=== PATIENT | female | born 1970 | race Caucasian/White ===

== ENCOUNTER 2016-11-22 11:20 | Observation (INO) | payer MEDICAID ==
[~2016-11-22] VITALS: Ht 162.6 cm; Wt 137.3 kg
[~2016-11-22 11:20] MED LIST: GLUCOPHAGE500 MG PO; GLUCOTROL ER2.5 MG PO; LEVAQUIN500 MG PO; PERCOCET 10/3251 TA1 PO; XANAX1 MG PO; ZOFRAN4 MG PO
--- NOTE | 2016-11-22 11:30 | NUR ---
RECEIVED TO ROOM [address] KAY'S OFFICE. A/O X3. WOUND TO RIGHT INNER THIGH WITHOUT ANY DRAINAGE AT THIS TIME. WARM AND REDDENED APPROXIMATLY 4CM X 4CM AREA. DR. JAQUEZ IS PLANNING A BEDSIDE I/D TODAY ON SAME. SIGNIFICANT OTHER AT BEDSIDE.
[2016-11-22] MEDS ORDERED: NORCO 7.5/325 T1 TA1 PO (12:21)
--- NOTE | 2016-11-22 13:00 | NUR ---
IV SITED TO LEFT WRIST AFTER 2 ATTEMPTS WITH 22 G.
[2016-11-22 13:10] LABS: BASOPHILS 0.2 % (0-2); EOSINOPHILS 2.1 % (0-7); HEMATOCRIT 35.5 % (36.0-48.0); HEMOGLOBIN 10.6 g/dL (12-16); IMMATURE GRANULOCYTES 0.6 % (0-5); LYMPHOCYTES 13.1 % (15-50); MCH 22.8 pg (26.0-34.0); MCHC 29.9 g/dL (31.0-37.0); MCV 76.5 fL (80.0-100.0); MEAN PLATELET VOLUME 9.5 fL (7.4-10.4); MONOCYTES 7.6 % (2-11); NEUTROPHILS 76.4 % (40-80); PLATELET COUNT 419 10x3/uL (130-400); RBC 4.64 10x6/uL (4.00-5.40); WBC 10.1 10x3/uL (4.8-10.8)
[2016-11-22 13:18] VITALS: Ht 162.6 cm; Wt 137.3 kg
[2016-11-22 13:18] LABS: ALBUMIN 2.4 g/dL (3.4-5.0); ALKALINE PHOSPHATASE 137 U/L (46-116); ALT (SGPT) 36 U/L (10-68); BILIRUBIN - TOTAL 0.44 mg/dL (0.2-1.3); CALC OSMOLALITY 275 mosm/kg (275-300); CALCIUM 8.4 mg/dL (8.5-10.1); CARBON DIOXIDE 24.8 mmol/L (21.0-32.0); CHLORIDE - SERUM 101 mmol/L (98-107); CREATININE - SERUM 0.5 mg/dL (0.6-1.3); POTASSIUM - SERUM 4.1 mmol/L (3.5-5.1); PROTEIN - SERUM 9.1 g/dL (6.4-8.2); SODIUM 135 mmol/L (136-145); UREA NITROGEN 11 mg/dL (7-18); eGFR NON AFRICAN AMERICAN > 90 mL/min (90-120)
[2016-11-22 13:21] LABS: GLUCOSE 231 mg/dL (74-106)
--- NOTE | 2016-11-22 17:00 | NUR ---
FSBS 144. NO COVERAGE REQUIRED. STILL NPO FOR PORCEDURE.
--- NOTE | 2016-11-22 19:00 | NUR ---
DR. JAQUEZ HERE COMPLETED I/D AT BEDSIDE. PATIENT TOLERATED WITHOUT C/O PAIN. WILL D/C HOME SOON.
--- NOTE | 2016-11-22 20:24 | NUR ---
PT WAS DISCHARGED AT SHIFT CHANGE. AMANDA THE COMMAND POST CRAFTSMAN DID HER PAPER WORK ANDF AFTER REPORT WAS TAKEN I REMOVED HER IV AND DRESSED IT. HER DRESSING TO HER THIGH WAS CLEAN AND DRY. EXTRA DRESSINGS WERE GIVEN FOR BLEEDING DURING THE NIGHT. AFTER ALL PAPER WORK WAS GONE OVER AND SIGNED PT WAS TAKEN TO THE CAR VIA W/C.
== END 2016-11-22 20:15 | disposition home or self-care (01) ==
LOC: D.MS 11:20 → OBSVTIME 11:20 → D.MS 20:15
PROVIDERS: ADMIT Family Medicine
DX: L02.415 Cutaneous abscess of right lower limb (principal); E11.9 Type 2 diabetes mellitus without complications

== ENCOUNTER → 2017-01-02 19:17 | Outpatient (CLI) | payer MEDICAID ==
[2016-11-22 13:18] VITALS: BMI 51.9
[~2017-01-02 19:17] MED LIST changes: +NORCO 7.5/325 T1 TA1 PO
== END | disposition home or self-care (01) ==
LOC: D.LABREF 19:17
DX: L02.415 Cutaneous abscess of right lower limb (principal)

== ENCOUNTER 2017-07-29 17:29 | Emergency (ER) | payer MEDICAID ==
[2016-11-22 13:18] VITALS: BMI 51.9
[2017-07-29 19:27] LABS: BASOPHILS 0.3 % (0-2); EOSINOPHILS 1.8 % (0-7); HEMATOCRIT 32.3 % (36.0-48.0); HEMOGLOBIN 9.8 g/dL (12-16); IMMATURE GRANULOCYTES 0.4 % (0-5); LYMPHOCYTES 15.1 % (15-50); MCH 21.8 pg (26.0-34.0); MCHC 30.3 g/dL (31.0-37.0); MCV 71.8 fL (80.0-100.0); MEAN PLATELET VOLUME 9.4 fL (7.4-10.4); NEUTROPHILS 75.4 % (40-80); PLATELET COUNT 415 10x3/uL (130-400); RDW 18.6 % (11.5-14.5); WBC 11.4 10x3/uL (4.8-10.8)
[2017-07-29 20:11] LABS: APTT 25.9 SECONDS (22.8-39.4); INR 1.12 (0.85-1.17)
[2017-07-29 20:12] LABS: D-DIMER-QUANTITATIVE 0.38 ug/mLFEU (0.20-0.54)
[2017-07-29 20:18] LABS: ALBUMIN 2.5 g/dL (3.4-5.0); ALKALINE PHOSPHATASE 137 U/L (46-116); ALT (SGPT) 23 U/L (10-68); BILIRUBIN - TOTAL 0.32 mg/dL (0.2-1.3); CALC OSMOLALITY 279 mosm/kg (275-300); CALCIUM 8.3 mg/dL (8.5-10.1); CARBON DIOXIDE 29.1 mmol/L (21.0-32.0); CHLORIDE - SERUM 100 mmol/L (98-107); CREATININE - SERUM 0.7 mg/dL (0.6-1.3); GLUCOSE 210 mg/dL (74-106); SODIUM 137 mmol/L (136-145); UREA NITROGEN 12 mg/dL (7-18); eGFR NON AFRICAN AMERICAN > 90 mL/min (90-120)
[2017-07-29 20:33] LABS: AMYLASE - SERUM 41 U/L (25-115); CREATINE KINASE 40 UL (21-215); LIPASE 123 U/L (73-393)
[2017-07-29 20:37] LABS: TROPONIN-I < 0.017 ng/mL (0.000-0.060)
[2017-07-29 21:04] LABS: CKMB 0.3 U/L (0.0-3.6)
== END 2017-07-29 21:50 | disposition home or self-care (01) ==
LOC: D.ER 17:29
PROVIDERS: Family Medicine
DX: R51 Headache (principal); E28.2 Polycystic ovarian syndrome; E11.9 Type 2 diabetes mellitus without complications; Z79.4 Long term (current) use of insulin; R00.0 Tachycardia, unspecified

== ENCOUNTER → 2017-09-18 09:57 | Outpatient (CLI) | payer BC ==
[2016-11-22 13:18] VITALS: BMI 51.9
== END | disposition home or self-care (01) ==
LOC: D.MRI 09-11 15:24
DX: R51 Headache (principal)

== ENCOUNTER 2018-08-13 06:00 | Day surgery (SDC) | payer BC ==
[2018-08-08 12:29] LABS: BASOPHILS 0.3 % (0-2); EOSINOPHILS 1.6 % (0-7); HEMATOCRIT 36.8 % (36.0-48.0); HEMOGLOBIN 11.5 g/dL (12-16); IMMATURE GRANULOCYTES 0.4 % (0-5); LYMPHOCYTES 18.5 % (15-50); MCH 24.5 pg (26.0-34.0); MCHC 31.3 g/dL (31.0-37.0); MCV 78.3 fL (80.0-100.0); MEAN PLATELET VOLUME 9.5 fL (7.4-10.4); MONOCYTES 5.5 % (2-11); NEUTROPHILS 73.7 % (40-80); PLATELET COUNT 341 10x3/uL (130-400); RDW 16.1 % (11.5-14.5); WBC 9.9 10x3/uL (4.8-10.8)
[2018-08-08 12:38] LABS: CALC OSMOLALITY 272 mosm/kg (275-300); CALCIUM 8.1 mg/dL (8.5-10.1); CARBON DIOXIDE 28.7 mmol/L (21.0-32.0); CHLORIDE - SERUM 98 mmol/L (98-107); CREATININE - SERUM 0.6 mg/dL (0.6-1.3); GLUCOSE 218 mg/dL (74-106); POTASSIUM - SERUM 3.7 mmol/L (3.5-5.1); SODIUM 132 mmol/L (136-145); UREA NITROGEN 15 mg/dL (7-18); eGFR NON AFRICAN AMERICAN > 90 mL/min (90-120)
[~2018-08-13] VITALS: Ht 162.6 cm; Wt 140.6 kg
[~2018-08-13 06:00] MED LIST changes: +ALBUTEROL AER HFA; +VICTOZA0.6 MG/0.1 SQ
[2018-08-13 06:28] VITALS: BP 134/65; Ht 162.6 cm; Wt 140.6 kg
[2018-08-13 07:46] LABS: HCG URINE NEGATIVE (NEGATIVE)
[2018-08-13 08:36] LABS: APPEARANCE CLOUDY (CLEAR); BACTERIA MODERATE /hpf (NONE SEEN); BILIRUBIN NEGATIVE (NEGATIVE); COLOR YELLOW (YELLOW); GLUCOSE 500 mg/dL (NEGATIVE); KETONE SMALL mg/dL (NEGATIVE); NITRITE NEGATIVE (NEGATIVE); PROTEIN NEGATIVE (NEGATIVE); RED CELLS - URINE OCC /hpf (0-5); SPECIFIC GRAVITY 1.015 (1.005-1.020); UROBILINOGEN NORMAL (NORMAL)
[2018-08-13 08:37] LABS: YEAST <1+ /hpf (NONE SEEN)
--- NOTE | 2018-08-13 09:00 | NUR ---
REC'D FROM SURGERY. FAMILY AT BEDSIDE. RELATES IS THIRSTY AND WANTS TO GO TO THE BATHROOM. RELATES IS HAVING PAIN IN THE VAGINAL AREA 02/12. FL TRAY AND GRAPE JUICE BROUGHT TO PATIENT.
--- NOTE | 2018-08-13 09:30 | NUR ---
TOLERATED DIET. AWAKE AND SMILING. RELATES IS READY TO GO HOME. C/O CRAMPING IN YENY AREA.
--- NOTE | 2018-08-13 10:02 | NUR ---
TYLENOL #3 PO ADMINISTERED FOR C/O PAIN 02/12 PER ORDERS.
--- NOTE | 2018-08-13 10:05 | NUR ---
FSBS RECHECKED 484. ORDRE FOR URGENT LAB DRAW TO CONFIRM RESULT.
--- NOTE | 2018-08-13 10:10 | NUR ---
SPOKE WITH DR WHITE AND ORDER RECEIVED FOR 10 UNITS OD REGULAR INSULIN.
--- NOTE | 2018-08-13 10:37 | NUR ---
LAB HAS NOT DRAWN PATIENTS GLUCOSE. LAB CALLED AND SPOKE WITH REGARDING URGENT ORDER FOR GLUCOSE DRAW.
--- NOTE | 2018-08-13 10:55 | NUR ---
LAB STILL HAS NOT DRAWN PT'S GLUCOSE. FSBS PERFORMED WITH RESULT OF 259.
--- NOTE | 2018-08-13 11:05 | NUR ---
SPOKE WITH DR WHITE AND RELATED BS HAS COME DOWN TO 259 WITHOUT THE ADMINISTRATION OF INSULIN. RELATES THAT IS FINE AND SHE CAN GO HOME.
--- NOTE | 2018-08-13 11:20 | NUR ---
IV DC'D WITH CATHETER INTACT. WRITTEN AND VERBAL DC INST, GIVEN TO PT ALONG WITH RX. VERBALIZED UNDERSTANDING.
--- NOTE | 2018-08-13 11:30 | NUR ---
DC'D HOME WITH FAMILY VIA PRIVATE VEHICLE. TAKEN TO VEHICLE VIA WC. STABLE AT TIME OF DC.
== END 2018-08-13 11:30 | disposition home or self-care (01) ==
LOC: D.OPS 06:00
PROVIDERS: ATTEND Obstetrics & Gynecology
DX: N84.0 Polyp of corpus uteri (principal); N93.8 Other specified abnormal uterine and vaginal bleeding; N76.0 Acute vaginitis; Z01.812 Encounter for preprocedural laboratory examination

== ENCOUNTER → 2018-12-05 06:56 | Outpatient (CLI) | payer BC ==
[2018-08-13 06:28] VITALS: BMI 53.3
== END | disposition home or self-care (01) ==
LOC: D.NM 06:56
PROVIDERS: ATTEND Nurse Practitioner Family
DX: K21.9 Gastro-esophageal reflux disease without esophagitis (principal)

== ENCOUNTER 2019-02-26 06:50 | Emergency (ER) | payer BC ==
[~2019-02-26] VITALS: Ht 162.6 cm; Wt 134.1 kg
[2019-02-26 06:55] VITALS: Ht 162.6 cm; Wt 134.1 kg
[2019-02-26] MEDS ORDERED: GLUCOTROL 5 MG T5 MG PO (06:58)
[2019-02-26 09:17] VITALS: BP 148/88
== END 2019-02-26 09:18 | disposition home or self-care (01) ==
LOC: D.ER 06:50
DX: M54.32 Sciatica, left side (principal); E11.9 Type 2 diabetes mellitus without complications

== ENCOUNTER 2019-03-26 13:16 | Inpatient (IN) | payer BC ==
[~2019-03-26] VITALS: Ht 162.6 cm; Wt 168.2 kg
[~2019-03-26 13:16] MED LIST changes: +GLUCOTROL 5 MG T5 MG PO
--- NOTE | 2019-03-26 14:40 | NUR ---
RECEIVED TO ROOM 2230 VIA FROM OFFICE. A/O X3. AT BEDSIDE. SKIN HAS SEVERAL SCARED AREAS UNDER ARMS AND ON BUTTOCKS. SHE STATES THIS IS FROM HYDRONITIS. C/O PAIN TO LEFT SIDE OF ABDOMEN AND CHEST. WILL MONITOR.
--- NOTE | 2019-03-26 15:15 | NUR ---
OFF UNIT VIA FOR CT SCAN.
[2019-03-26 15:18] VITALS: BP 132/36; BMI 497.2
[2019-03-26 15:25] LABS: HEMATOCRIT 33.1 % (36.0-48.0); HEMOGLOBIN 9.7 g/dL (12-16); MCH 21.1 pg (26.0-34.0); MCHC 29.3 g/dL (31.0-37.0); PLATELET COUNT 457 10x3/uL (130-400); RDW 18.1 % (11.5-14.5); WBC 24.5 10x3/uL (4.8-10.8)
[2019-03-26 15:25] LABS: CALC OSMOLALITY 271 mosm/kg (275-300); CALCIUM 8.3 mg/dL (8.5-10.1); CARBON DIOXIDE 23.7 mmol/L (21.0-32.0); CHLORIDE - SERUM 98 mmol/L (98-107); CREATININE - SERUM 0.5 mg/dL (0.6-1.3); GLUCOSE 243 mg/dL (74-106); POTASSIUM - SERUM 3.6 mmol/L (3.5-5.1); SODIUM 133 mmol/L (136-145); UREA NITROGEN 7 mg/dL (7-18); eGFR NON AFRICAN AMERICAN > 90 mL/min (90-120)
[2019-03-26 15:31] LABS: ALBUMIN 2.7 g/dL (3.4-5.0); ALKALINE PHOSPHATASE 143 U/L (46-116); ALT (SGPT) 20 U/L (10-68); AMYLASE - SERUM 38 U/L (25-115); LIPASE 132 U/L (73-393); PROTEIN - SERUM 8.8 g/dL (6.4-8.2)
[2019-03-26] MEDS ORDERED: OMEPRAZOLE20 M1 PO (15:38)
[2019-03-26 15:39] VITALS: BP 133/64
[2019-03-26 15:47] LABS: LYMPHOCYTES 6 % (15-50); MONOCYTES 4 % (2-11); NEUTROPHILS 89 % (40-80); PLATELET ESTIMATE NORMAL
--- NOTE | 2019-03-26 17:56 | NUR ---
REQUESTED AND GIVEN ONE HYDROCODONE PO FOR C/O ABDOMINAL PAIN LEVEL 10. WILL MONITOR.
[2019-03-26 18:51] LABS: APPEARANCE CLOUDY (CLEAR); BILIRUBIN NEGATIVE (NEGATIVE); COLOR YELLOW (YELLOW); GLUCOSE 100 mg/dL (NEGATIVE); KETONE MODERATE mg/dL (NEGATIVE); NITRITE NEGATIVE (NEGATIVE); PROTEIN TRACE mg/dL (NEGATIVE); UROBILINOGEN NORMAL (NORMAL)
[2019-03-26 18:56] LABS: EPITHELIAL CELLS 0-5 /hpf (0-5); RED CELLS - URINE 25-50 /hpf (0-5)
[2019-03-26 18:57] LABS: BACTERIA FEW /hpf (NEGATIVE)
--- NOTE | 2019-03-26 19:15 | NUR ---
A&O X 4. REPORTS PAIN IS IT A TOLERABLE LEVEL. REQUESTS TO SPEAK WITH INSPECTOR CIRCUITRY NEGATIVE OR DR WHEN POSSIBLE. AT BEDSIDE. NO REQUESTS AT THIS TIME, WILL CONTINUE TO MONITOR
[2019-03-26 21:23] VITALS: BP 114/62
[2019-03-27 01:14] VITALS: BP 122/60
--- NOTE | 2019-03-27 04:49 | NUR ---
I have reviewed this patient and I concur with the Shift Assessment completed by the Licensed Practical Nurse today this shift.
[2019-03-27 05:17] LABS: BASOPHILS 0.1 % (0-2); EOSINOPHILS 0.1 % (0-7); HEMATOCRIT 30.2 % (36.0-48.0); HEMOGLOBIN 8.6 g/dL (12-16); IMMATURE GRANULOCYTES 0.5 % (0-5); LYMPHOCYTES 5.6 % (15-50); MCH 20.8 pg (26.0-34.0); MCHC 28.5 g/dL (31.0-37.0); MCV 72.9 fL (80.0-100.0); MEAN PLATELET VOLUME 9.2 fL (7.4-10.4); MONOCYTES 10.3 % (2-11); NEUTROPHILS 83.4 % (40-80); PLATELET COUNT 442 10x3/uL (130-400); RBC 4.14 10x6/uL (4.00-5.40); RDW 18.3 % (11.5-14.5); WBC 22.5 10x3/uL (4.8-10.8)
[2019-03-27 05:27] LABS: % SATURATION 3 % (15-55); IRON 11 ug/dl (35-150); TOTAL IRON BIND CAPACITY 284 ug/dl (260-445); UNSAT IRON BIND CAPACITY 273 ug/dl (150-375)
[2019-03-27 06:00] LABS: CALC OSMOLALITY 271 mosm/kg (275-300); CALCIUM 7.6 mg/dL (8.5-10.1); CHLORIDE - SERUM 102 mmol/L (98-107); CREATININE - SERUM 0.5 mg/dL (0.6-1.3); FERRITIN 80 ng/mL (3-244); GLUCOSE 209 mg/dL (74-106); MAGNESIUM - SERUM 1.4 mg/dL (1.8-2.4); PHOSPHOROUS 2.1 mg/dL (2.5-4.9); POTASSIUM - SERUM 3.1 mmol/L (3.5-5.1); SODIUM 134 mmol/L (136-145); UREA NITROGEN 8 mg/dL (7-18); eGFR NON AFRICAN AMERICAN > 90 mL/min (90-120)
[2019-03-27 06:01] VITALS: BP 134/66
[2019-03-27 07:41] VITALS: BP 125/64
--- NOTE | 2019-03-27 08:33 | NUR ---
AWAKE AND ALERT. ORIENTED X3. NO C/O AT THIS TIME. WILL BE NPO AFTER BREAKFAST FOR TEST. LUNGS ARE WHEEZEY IN LEFT LOWER LOBES AND DIMINISHED THROUGHOUT. OCCASSIONAL DRY COUGH NOTED. IV TO RIGHT HAND IS PATENT WITHOUT REDNESS AT INSERTION SITE. DENIES NEEDS. BREAKFAST SERVED IN ROOM.
--- NOTE | 2019-03-27 09:00 | NUR ---
ATE ALL OF BREAKFAST. NOP AT THIS TIME. REFUSED TO WEAR TELTMETRY. UP TO SHOWER WITH SET UP ASSISTANCE. THERE IS AN OPEN SORE UNDER LEFT ARM THAT HAS SOME YELLOWISH OOZING. DRY DRESSING PLACED. WILL MONITOR.
--- NOTE | 2019-03-27 13:42 | NUR ---
THINKING HER BLOOD GLUCOSE IS LOW. CHECK SHOWS 234. WILL CONTINUE TO MONITOR.
[2019-03-27 14:18] VITALS: Ht 162.6 cm; Wt 168.2 kg
[2019-03-27 15:24] VITALS: BP 137/58
--- NOTE | 2019-03-27 16:31 | MORECARE ---
CASE MANAGEMENT DISCHARGE SUMMARY PATIENT: THA ODOM UNIT: [id number] ADM DATE: 03/26/19 AGE: 48 : 66 SEX: F ROOM/BED: D.2230 AUTHOR: LOR,DOC PHYSICIAN: REFERRING PHYSICIAN: MAGO KAY MD DATE OF SERVICE: 03/27/19 Discharge Plan Patient Name: THA ODOM Facility: [facility]:[place] : 1970 Planned Disposition: Home Anticipated Discharge Date: 03/27/19 Discharge Date: Expected LOS: 1 Initial Reviewer: [email or web address] Initial Review Date: 03/27/2019 Generated: 03/27/19 5:31 pm Comments DCP- Discharge Planning Updated by [id number]: Celia Salazar on 03/27/19 3:[address] Patient Name: THA ODOM Admission Status: Urgent Accout number: [id number] Admission Date: 03-26-2019 : 1970 Admission Diagnosis: Attending: MAGO IVEY Current LOS: 1 Anticipated DC Date: 03-27-2019 Planned Disposition: Home Primary Insurance: [employer] [facility] Discharge Planning Comments: CM met with patient to complete initial dc planning assessment. CM educated patient on the CM role and verbal consent given by patient to complete assessment. Patient lives at home with her . At discharge patient plans to return and feels this is a safe discharge. CM discussed availability of home health, rehab services, and medical equipment. Patient denied known discharge needs at this time. CM will continue to follow and will assist as needed with dc plans/needs. Computer Aided Design Operator: Celia Salazar DCPIA - Discharge Planning Initial Assessment Updated by [email or web address]: Celia Salazar on 03/27/19 4:30 pm * Is the patient Alert and Oriented? Yes * How many steps to enter\exit or inside your home? 0/0 * PCP Dr. Mago Ivey * Pharmacy [facility] on [address] * Preadmission Environment Home with Family * ADLs Independent * Equipment Glucometer * List name and contact numbers for known caregivers / representatives who currently or will assist patient after discharge: Mitch Odom - [facility] - [phone] * Verbal permission to speak to the caregivers and representatives has been obtained from the patient. Yes * Community resources currently utilized None * Additional services required to return to the preadmission environment? No * Can the patient safely return to the preadmission environment? Yes * Has this patient been hospitalized within the prior 30 days at any hospital? No Patient Name: THA ODOM Page [id number] at 1631 All edits/amendments must be made on the electronic document DICTATION DATE: 03/27/19 1631 VENDING MACHINE REFILLER: LESLIE 03/27/19 1631 RPT#: [id number] DC DATE: STATUS: ADM IN [facility] [address] [place] [address] END OF REPORT
--- NOTE | 2019-03-27 18:49 | NUR ---
ATE MOST OF SUPPER. AT BEDSIDE. DENIES NEEDS. NO CHANGES NOTED.
[2019-03-27 21:16] VITALS: BP 133/73
[2019-03-28 00:57] VITALS: BP 124/50
[2019-03-28 05:00] VITALS: BP 116/63
[2019-03-28 06:34] LABS: CALC OSMOLALITY 275 mosm/kg (275-300); CALCIUM 7.9 mg/dL (8.5-10.1); CARBON DIOXIDE 24.6 mmol/L (21.0-32.0); CHLORIDE - SERUM 101 mmol/L (98-107); CREATININE - SERUM 0.5 mg/dL (0.6-1.3); GLUCOSE 214 mg/dL (74-106); MAGNESIUM - SERUM 1.5 mg/dL (1.8-2.4); PHOSPHOROUS 1.9 mg/dL (2.5-4.9); POTASSIUM - SERUM 3.1 mmol/L (3.5-5.1); SODIUM 136 mmol/L (136-145); UREA NITROGEN 6 mg/dL (7-18); eGFR NON AFRICAN AMERICAN > 90 mL/min (90-120)
[2019-03-28 06:36] LABS: HEMATOCRIT 27.9 % (36.0-48.0); HEMOGLOBIN 8.1 g/dL (12-16); MCH 20.9 pg (26.0-34.0); MCV 72.1 fL (80.0-100.0); MEAN PLATELET VOLUME 9.5 fL (7.4-10.4); PLATELET COUNT 388 10x3/uL (130-400); RBC 3.87 10x6/uL (4.00-5.40); RDW 18.5 % (11.5-14.5); WBC 22.2 10x3/uL (4.8-10.8)
--- NOTE | 2019-03-28 08:00 | NUR ---
ALERT AND OREINTED X4. REFUSES SCD'S. UP ADLIB. ABDOMEN OBESE WITH PANNUS WITH SKIN INTACT AND BOWEL SOUNDS NOTED X4.. HRRR WITH BREATH SOUNDS DIMINISHED TO BLQ POSTERIOR WITHOUT DYSPNEA. IVF INFUSING TO RIGHT HAND AND INTACT. INSTRUCTED ON NEED FOR SPUTUM CULTURE AND USE OF SPECIMEN CUP. ENCOURAGED TO USE CALL LIGHT FOR ASSSIT. DENIES ANY PAIN OR DISCOMFORT.
[2019-03-28 08:17] VITALS: BP 110/59
[2019-03-28 08:24] LABS: HYPOCHROMASIA 3+; LYMPHOCYTES 4 % (15-50); MONOCYTES 4 % (2-11); NEUTROPHILS 92 % (40-80); PLATELET ESTIMATE NORMAL
[2019-03-28 12:00] VITALS: BP 107/70
[2019-03-28 17:45] VITALS: BP 121/69
--- NOTE | 2019-03-28 20:00 | NUR ---
ALERT AND ORIENTIATED, SITTING UP ON SIDE OF BED, REPORTS PAIN BETTER NOW, BUT AFRAID TEMP WILL COME UP IF NOT TAKING TYLENOL, INSTRUCTED THAT [facility] HAS TYLENOL IN IT, AND WE WILL CONTINUE TO MONITOR TEMP AND WILL GIVE TYLENOL IF NEEDED, SEE SHIFT ASSESSMENT, CALL LIGHT IN REACH
[2019-03-28 20:33] VITALS: BP 129/66
[2019-03-29 01:00] VITALS: BP 126/72
[2019-03-29 05:21] VITALS: BP 128/77
[2019-03-29 06:20] LABS: BASOPHILS 0.2 % (0-2); EOSINOPHILS 0.5 % (0-7); HEMATOCRIT 26.6 % (36.0-48.0); HEMOGLOBIN 7.7 g/dL (12-16); IMMATURE GRANULOCYTES 0.7 % (0-5); LYMPHOCYTES 8.2 % (15-50); MCH 20.8 pg (26.0-34.0); MCHC 28.9 g/dL (31.0-37.0); MCV 71.9 fL (80.0-100.0); MEAN PLATELET VOLUME 9.6 fL (7.4-10.4); MONOCYTES 8.1 % (2-11); NEUTROPHILS 82.3 % (40-80); PLATELET COUNT 408 10x3/uL (130-400); RDW 18.6 % (11.5-14.5)
[2019-03-29 06:28] LABS: WBC 14.7 10x3/uL (4.8-10.8)
[2019-03-29 06:48] LABS: CALC OSMOLALITY 273 mosm/kg (275-300); CALCIUM 7.6 mg/dL (8.5-10.1); CARBON DIOXIDE 23.8 mmol/L (21.0-32.0); CHLORIDE - SERUM 101 mmol/L (98-107); CREATININE - SERUM 0.4 mg/dL (0.6-1.3); GLUCOSE 207 mg/dL (74-106); MAGNESIUM - SERUM 1.5 mg/dL (1.8-2.4); PHOSPHOROUS 2.1 mg/dL (2.5-4.9); SODIUM 135 mmol/L (136-145); UREA NITROGEN 7 mg/dL (7-18); eGFR NON AFRICAN AMERICAN > 90 mL/min (90-120)
[2019-03-29 06:49] LABS: POTASSIUM - SERUM 2.9 mmol/L (3.5-5.1)
--- NOTE | 2019-03-29 08:00 | NUR ---
ALERT AND ORIENTED X4 WITH FAMILY PRESENT. NO DYSPNEA NOTED. ABNORMAL LABS TREATED PER PROTOCOL. IVF INFUSING AT PRESCRIBED RATE TO RT. HAND. DIMINISHED BREATH SOUNDS NOTED TO BLQ POSTERIOR. TELEMETRY INTACT. UP ADLIB AND DENIES ANY PAIN OR DISCOMFORT AT THIS TIME. ENCOURAGED TO USE CALL LIGHT FOR ASSIST. ABDOMEN OBESE WITH BS NOTED X4.
[2019-03-29 08:20] LABS: INR 1.11 (0.85-1.17); PROTIME 13.8 SECONDS (11.6-15.0)
[2019-03-29 08:28] VITALS: BP 144/75
--- NOTE | 2019-03-29 11:40 | NUR ---
IV 20 GAUGE STARTED TO RIGHT FOREARM WITH 1ST UNIT PRBC'S STARTED WITH NO S/S OF REACTION NOTED AT THIS TIME.
--- NOTE | 2019-03-29 14:36 | NUR ---
PT AWARE OF NEED FOR STOOL SPECIMEN
--- NOTE | 2019-03-29 20:00 | NUR ---
ALERT SITTING UP IN BED, REPORTS FEELING BETTER TODAY LESS ANXIOUS, DENIES PAIN OR NEEDS AT THIS TIME SEE SHIFT ASSESSMENT, CALL LIGHT IN REACH
[2019-03-29 20:51] VITALS: BP 134/72
[2019-03-30 01:05] VITALS: BP 133/77
[2019-03-30 05:06] VITALS: BP 141/78
[2019-03-30 06:32] LABS: BASOPHILS 0.3 % (0-2); EOSINOPHILS 1.5 % (0-7); HEMATOCRIT 31.1 % (36.0-48.0); HEMOGLOBIN 9.2 g/dL (12-16); IMMATURE GRANULOCYTES 1.3 % (0-5); LYMPHOCYTES 9.8 % (15-50); MCH 22.2 pg (26.0-34.0); MCHC 29.6 g/dL (31.0-37.0); MEAN PLATELET VOLUME 9.5 fL (7.4-10.4); MONOCYTES 10.6 % (2-11); NEUTROPHILS 76.5 % (40-80); PLATELET COUNT 390 10x3/uL (130-400); RBC 4.15 10x6/uL (4.00-5.40); RDW 19.5 % (11.5-14.5)
[2019-03-30 07:02] LABS: CALC OSMOLALITY 279 mosm/kg (275-300); CALCIUM 7.9 mg/dL (8.5-10.1); CARBON DIOXIDE 25.7 mmol/L (21.0-32.0); CHLORIDE - SERUM 103 mmol/L (98-107); CREATININE - SERUM 0.5 mg/dL (0.6-1.3); GLUCOSE 222 mg/dL (74-106); LDH 129 U/L (81-234); PHOSPHOROUS 2.6 mg/dL (2.5-4.9); POTASSIUM - SERUM 3.3 mmol/L (3.5-5.1); PROTEIN - SERUM 7.6 g/dL (6.4-8.2); SODIUM 137 mmol/L (136-145); eGFR NON AFRICAN AMERICAN > 90 mL/min (90-120)
[2019-03-30 07:03] LABS: INR 1.16 (0.85-1.17); PROTIME 14.3 SECONDS (11.6-15.0)
[2019-03-30 07:08] LABS: MAGNESIUM - SERUM 1.9 mg/dL (1.8-2.4); UREA NITROGEN 9 mg/dL (7-18)
[2019-03-30 07:13] LABS: MCV 74.9 fL (80.0-100.0); WBC 9.9 10x3/uL (4.8-10.8)
--- NOTE | 2019-03-30 07:32 | NUR ---
AWAKE AND ALERT. ORIENTED X3. NO C/O AT THIS TIME. LUNGS ARE DIMINISHED THROUGHOUT, OCCASSIONAL DRY COUGH NOTED. SKIN IS INTACT WTIHOUT REDNESS EXCEPT AREAS UNDER ARM PITS WHICH ARE CLEAN AND DRY THIS AM. IV TO RIGHT HAND IS PATENT WITHOUT REDNESS AT INSERTION SITE. AT BEDSIDE. DENIES NEEDS. NPO FOR PROCEDURE THIS AM.
--- NOTE | 2019-03-30 08:30 | NUR ---
OFF UNIT VIA FOR PROCEDURE.
--- NOTE | 2019-03-30 09:56 | NUR ---
RETURNED FROM IR. NO PROCEDURE COMPLETED. A/O X3. BREAKFAST SERVED IN ROOM.
--- NOTE | 2019-03-30 12:00 | NUR ---
FSBS 214. GIVEN 8 UNITS HUMALOG SUBQ PER SS. LUNCH ORDERED PER STAFF.
[2019-03-30 12:52] VITALS: BP 142/70
--- NOTE | 2019-03-30 13:50 | NUR ---
Nutrition follow-up: Diet: Consistent CHO PO intake ~80% average of last 5 meals Labs reviewed: Glucose running high +BM Wt: 370# PO intake is good at this time. RDN following.
--- NOTE | 2019-03-30 14:17 | NUR ---
ATE ALL OF LUNCH VISITOR AT BEDSIDE. DENIES NEEDS.
--- NOTE | 2019-03-30 18:42 | NUR ---
ATE ALL OF SUPPER. DENIES NEEDS. NO CHANGES NOTED. AT BEDSIDE.
--- NOTE | 2019-03-30 20:00 | NUR ---
ALERT SITTING UP IN BED DENIES PAIN OR NEEDS AT THIS TIME, SEE SHIFT ASSESSMENT CALL LIGHT IN REACH
[2019-03-30 20:41] VITALS: BP 112/67
[2019-03-31 01:39] VITALS: BP 126/64
[2019-03-31 04:49] VITALS: BP 144/79
[2019-03-31 06:55] LABS: BASOPHILS 0.3 % (0-2); EOSINOPHILS 2.7 % (0-7); HEMATOCRIT 31.9 % (36.0-48.0); HEMOGLOBIN 9.4 g/dL (12-16); IMMATURE GRANULOCYTES 2.6 % (0-5); LYMPHOCYTES 13.6 % (15-50); MCH 22.1 pg (26.0-34.0); MCHC 29.5 g/dL (31.0-37.0); MCV 75.1 fL (80.0-100.0); MEAN PLATELET VOLUME 9.3 fL (7.4-10.4); NEUTROPHILS 71.8 % (40-80); PLATELET COUNT 396 10x3/uL (130-400); RBC 4.25 10x6/uL (4.00-5.40); RDW 19.7 % (11.5-14.5); WBC 9.2 10x3/uL (4.8-10.8)
[2019-03-31 07:06] LABS: CALC OSMOLALITY 280 mosm/kg (275-300); CALCIUM 7.8 mg/dL (8.5-10.1); CARBON DIOXIDE 26.3 mmol/L (21.0-32.0); CHLORIDE - SERUM 104 mmol/L (98-107); CREATININE - SERUM 0.5 mg/dL (0.6-1.3); GLUCOSE 179 mg/dL (74-106); MAGNESIUM - SERUM 1.7 mg/dL (1.8-2.4); SODIUM 139 mmol/L (136-145); UREA NITROGEN 9 mg/dL (7-18); eGFR NON AFRICAN AMERICAN > 90 mL/min (90-120)
[2019-03-31 07:08] LABS: PHOSPHOROUS 3.5 mg/dL (2.5-4.9); POTASSIUM - SERUM 3.8 mmol/L (3.5-5.1)
--- NOTE | 2019-03-31 07:31 | NUR ---
AWAKE AND ALERT. ORIENTED X3. NO C/O AT THIS TIME. LUNGS ARE CLEAR BUT DIMINISHED THROUGHOUT, OCCASSIONAL DRY COUGH NOTED. SKIN IS INTACT WITHOUT REDNESS EXCEPT AREAS UNDER ARMS WHICH ARE IMPROVED FROM YESTERDAY. IV TO RIGHT HAND IS PATENT WITHOUT REDNESS AT INSERTION SITE. GETTING UP TO SHOWER PER SELF. AT BEDSIDE.
--- NOTE | 2019-03-31 08:30 | NUR ---
UP TO SHOWER WITH SET UP ASSIST.
--- NOTE | 2019-03-31 08:49 | EC ---
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 Ao 160 cm/sec RVOT 98 cm/sec RA cm/sec PA 129 cm/sec AV Gradient Peak 10.22mmHg AV Mean 6.06 mmHg AV Area 2.2 cm MV Gradient Peak 8.42 mmHg MV Mean 3.30 mmHg MV Area cm COMMENTS: Manager Bank: 2 JOSH MARINO Rocket Engine Tester: 3 Dr. Danielle TAPE# PACS Pericardial Effusion N DATE OF SERVICE: Adequate 2D, color flow, spectral Doppler, and M-mode. LVH is present. LV internal dimension is normal. Wall motion is normal. EF is greater than or equal to 55%. Aortic valve sclerosis without stenosis by Doppler interrogation. Left atrium is normal at 3.6. Mitral valve shows no prolapse. Mild MR. Right-sided chambers appear grossly normal. Mild TR. RV systolic pressure estimated greater than or equal to 32 mmHg via the continuity equation. TRANSINT:[id number] Voice Confirmation ID: [id number] DOCUMENT ID: [id number] ECHOCARDIOGRAM REPORT [id number] THA HARRIS GREGORY A MD at 0849 CC: [id number] DICTATION DATE: 03/29/19 1016 HAND RUG CLEANER: 03/29/19 1127 ADM IN [facility] [address] [place] [address]
[2019-03-31 08:53] VITALS: BP 133/77
--- NOTE | 2019-03-31 16:17 | NUR ---
REQUESTED AND GIVEN 650MG TYLENOL PO FOR C/O BACK AND SCIAT[place] PAIN LEVEL 7. WILL MONITOR.
[2019-03-31 17:23] VITALS: BP 128/67
--- NOTE | 2019-03-31 18:30 | NUR ---
ATE ALL OF SUPPER TRAY. IN ROOM. DR. STEWART WAS HERE AND ANSWERED ALL QUESTIONS. FEELS BETTER NOW. DENIES NEEDS. NO CHANGES NOTED.
--- NOTE | 2019-03-31 19:50 | NUR ---
SITTING UP ON SIDE OF BED. ALERT AND ORIENTED X4. RESP EVEN AND NONLABORED. DENIES PAIN. OCC PROD COUGH WITH PINK TINGED SPUTUM. REFUSES IV FLUIDS. SALINE LOCK NOTED TO RT FOREARM. NO DISTRESS. S.O AT BEDSIDE. AMBULATORY. CL IN REACH.
[2019-03-31 20:14] VITALS: BP 132/69
[2019-04-01 01:02] VITALS: BP 126/69
--- NOTE | 2019-04-01 03:57 | NUR ---
HAS RESTED WELL SO FAR THIS SHIFT. NO DISTRESS. CL IN REACH.
[2019-04-01 05:11] VITALS: BP 140/76
[2019-04-01 06:39] LABS: CALC OSMOLALITY 282 mosm/kg (275-300); CALCIUM 8.1 mg/dL (8.5-10.1); CARBON DIOXIDE 26.1 mmol/L (21.0-32.0); CHLORIDE - SERUM 104 mmol/L (98-107); CREATININE - SERUM 0.6 mg/dL (0.6-1.3); MAGNESIUM - SERUM 1.6 mg/dL (1.8-2.4); PHOSPHOROUS 3.3 mg/dL (2.5-4.9); POTASSIUM - SERUM 3.7 mmol/L (3.5-5.1); SODIUM 138 mmol/L (136-145); UREA NITROGEN 11 mg/dL (7-18); eGFR NON AFRICAN AMERICAN > 90 mL/min (90-120)
[2019-04-01 06:45] LABS: GLUCOSE 239 mg/dL (74-106)
[2019-04-01 06:58] LABS: BASOPHILS 0.5 % (0-2); EOSINOPHILS 2.5 % (0-7); HEMATOCRIT 32.7 % (36.0-48.0); HEMOGLOBIN 9.4 g/dL (12-16); IMMATURE GRANULOCYTES 4.9 % (0-5); LYMPHOCYTES 12.4 % (15-50); MCHC 28.7 g/dL (31.0-37.0); MCV 76.6 fL (80.0-100.0); MEAN PLATELET VOLUME 9.3 fL (7.4-10.4); MONOCYTES 6.9 % (2-11); NEUTROPHILS 72.8 % (40-80); PLATELET COUNT 403 10x3/uL (130-400); RBC 4.27 10x6/uL (4.00-5.40); RDW 20.4 % (11.5-14.5); WBC 11.8 10x3/uL (4.8-10.8)
--- NOTE | 2019-04-01 08:09 | NUR ---
REPORT RECIEVED. PT SITTING SEMI FOWLERS IN BED. RR EVEN AND UNLABORED. NO DISTRESS NOTED. SHE HAS A R FA PIV THAT IS SL. PT STATES SHE IS GOING HOME TODAY!! BED LOCKED AND IN LOWEST POSITION, CALL LIGHT WITHIN REACH. WILL CTM
[2019-04-01 09:22] VITALS: BP 143/80
[2019-04-01] MEDS ORDERED: FLORAJEN3 CAPS460 MG PO (10:52)
[2019-04-01] MEDS ORDERED: SINGULAIR10 MG PO (10:53)
[2019-04-01] MEDS ORDERED: FLUTICASONE PRO16 GM NASAL (10:53)
[2019-04-01] MEDS ORDERED: MUCINEX600 MG PO (10:53)
[2019-04-01] MEDS ORDERED: TESSALON PERLE100 MG PO (10:54)
[2019-04-01] MEDS ORDERED: LEVAQUIN750 MG PO (10:55)
--- NOTE | 2019-04-01 12:02 | NUR ---
DC PAPERWORK GONE OVER AND SIGNED WITH PT. ALL QUESTIONS ANSWERED. PIV REMOVED, CATH TIP FULLY INTACT. ALL VALUBLES REMOVED FROM ROOM. PT ESCORTED VIA WHEELCHAIR TO FRONT ENTRANCE.
--- NOTE | 2019-04-01 12:04 | MORECARE ---
CASE MANAGEMENT DISCHARGE SUMMARY PATIENT: THA ODOM UNIT: [id number] ADM DATE: 03/26/19 AGE: 48 : [birth year] SEX: F ROOM/BED: D.2230 AUTHOR: LORDOC PHYSICIAN: REFERRING PHYSICIAN: MAGO KAY MD DATE OF SERVICE: 04/01/19 Discharge Plan Patient Name: THA ODOM Facility: [facility]:[place] : 1970 Planned Disposition: Home Anticipated Discharge Date: 03/27/19 Discharge Date: Expected LOS: 1 Initial Reviewer: [email or web address] Initial Review Date: 03/27/2019 Generated: 04/01/19 1:04 pm Comments DCP- Discharge Planning Updated by [email or web address]: Celia Salazar on 04/01/19 10:[address] Patient Name: THA ODOM Encounter No: [id number] : 1970 Primary Insurance: [employer] PPO Anticipated DC Date: 03-27-2019 Planned Disposition: Home External Planned Provider: : DCP follow-up note: Patient and family in agreement with discharge plan. No changes to plan. Case management will follow and assist as needed. Celia Salazar DCP- Discharge Planning Updated by [id number]: Celia Salazar on 03/27/19 3:[address] Patient Name: THA ODOM Admission Status: Urgent Accout number: [id number] Admission Date: 03-26-2019 : 1970 Admission Diagnosis: Attending: MAGO IVEY Current LOS: 1 Anticipated DC Date: 03-27-2019 Planned Disposition: Home Primary Insurance: [employer] [place] PPO Discharge Planning Comments: CM met with patient to complete initial dc planning assessment. CM educated patient on the CM role and verbal consent given by patient to complete assessment. Patient lives at home with her . At discharge patient plans to return and feels this is a safe discharge. CM discussed availability of home health, rehab services, and medical equipment. Patient denied known discharge needs at this time. CM will continue to follow and will assist as needed with dc plans/needs. Terminal System Operator: Celia Salazar DCPIA - Discharge Planning Initial Assessment Updated by [email or web address]: Celia Salaazr on 03/27/19 4:30 pm * Is the patient Alert and Oriented? Yes * How many steps to enter\exit or inside your home? 0/0 * PCP Dr. Mago Ivey * Pharmacy [facility] on [address] * Preadmission Environment Home with Family * ADLs Independent * Equipment Glucometer * List name and contact numbers for known caregivers / representatives who currently or will assist patient after discharge: Mitch Odom - [facility] - [phone] * Verbal permission to speak to the caregivers and representatives has been obtained from the patient. Yes * Community resources currently utilized None * Additional services required to return to the preadmission environment? No * Can the patient safely return to the preadmission environment? Yes * Has this patient been hospitalized within the prior 30 days at any hospital? No Last DP export: 03/27/19 3:31 Patient Name: THA ODOM Page 21204 at 1204 All edits/amendments must be made on the electronic document DICTATION DATE: 04/01/19 120 ACCESS REPRESENTATIVE: LESLIE 04/01/19 1204 RPT#: [id number] [place] DATE: STATUS: ADM IN [facility] [address] [place] [address] END OF REPORT
[2019-04-01 13:10] LABS: FUNGUS STAIN Final report (())
[2019-04-01 16:08] LABS: ACID FAST SMEAR Negative (()); AFB SPECIMEN PROCESSING Concentration (())
[2019-04-02 14:08] LABS: IMMUNOGLOBULIN E 13 IU/mL (6-495)
--- NOTE | 2019-04-03 10:24 | MORECARE ---
CASE MANAGEMENT DISCHARGE SUMMARY PATIENT: THA ODOM UNIT: [id number] ADM DATE: 03/26/19 AGE: 48 : 66 SEX: F ROOM/BED: D.2230 AUTHOR: IRIS HOROWITZ PHYSICIAN: REFERRING PHYSICIAN: MAGO KAY MD DATE OF SERVICE: 04/03/19 Discharge Plan Patient Name: THA ODOM Facility: [facility]:[place] : 1970 Planned Disposition: Home Anticipated Discharge Date: 03/27/19 Discharge Date: 04/01/2019 Expected LOS: 1 Initial Reviewer: [email or web address] Initial Review Date: 03/27/2019 Generated: 04/03/19 11:24 am Comments DCP- Discharge Planning Updated by [email or web address]: Celia Salazar on 04/01/19 10:[address] Patient Name: THA ODOM Encounter No: [id number] : 1970 Primary Insurance: [employer] PPO Anticipated DC Date: 03-27-2019 Planned Disposition: Home External Planned Provider: : DCP follow-up note: Patient and family in agreement with discharge plan. No changes to plan. Case management will follow and assist as needed. Celia Salazar DCP- Discharge Planning Updated by [email or web address]: Celia Salazar on 03/27/19 3:[address] Patient Name: THA ODOM Admission Status: Urgent Accout number: [id number] Admission Date: 03-26-2019 : 1970 Admission Diagnosis: Attending: MAGO IVEY Current LOS: 1 Anticipated DC Date: 03-27-2019 Planned Disposition: Home Primary Insurance: [employer] [place] PPO Discharge Planning Comments: CM met with patient to complete initial dc planning assessment. CM educated patient on the CM role and verbal consent given by patient to complete assessment. Patient lives at home with her . At discharge patient plans to return and feels this is a safe discharge. CM discussed availability of home health, rehab services, and medical equipment. Patient denied known discharge needs at this time. CM will continue to follow and will assist as needed with dc plans/needs. Lieutenant Colonel: Celia Krauseell DCPIA - Discharge Planning Initial Assessment Updated by [email or web address]: Celia Krausewilliam on 03/27/19 4:30 pm * Is the patient Alert and Oriented? Yes * How many steps to enter\exit or inside your home? 0/0 * PCP Dr. Mago Ivey * Pharmacy [facility] on [place] * Preadmission Environment Home with Family * ADLs Independent * Equipment Glucometer * List name and contact numbers for known caregivers / representatives who currently or will assist patient after discharge: Mitch Odom - [facility] - [phone] * Verbal permission to speak to the caregivers and representatives has been obtained from the patient. Yes * Community resources currently utilized None * Additional services required to return to the preadmission environment? No * Can the patient safely return to the preadmission environment? Yes * Has this patient been hospitalized within the prior 30 days at any hospital? No Last DP export: 04/01/19 11:04 Patient Name: THA ODOM Page 15212 at 1024 All edits/amendments must be made on the electronic document DICTATION DATE: 04/03/19 1024 BRAKE REPAIRER HYDRAULIC: LESLIE 04/03/19 1024 RPT#: [id number] [place] DATE:04/01/19 STATUS: DIS IN [facility] [address] [place] [address] END OF REPORT
[2019-04-07 17:08] LABS: FUNGUS MYCOLOGY CULTURE Preliminary report (())
[2019-04-09 17:08] LABS: AEROBE ID Final report (())
== END 2019-04-01 12:08 | disposition home or self-care (01) | DRG 871 ==
LOC: D.M2 13:16 → D.MS 13:16
PROVIDERS: Family Medicine; Internal Medicine Nephrology; Internal Medicine Pulmonary Disease; ADMIT Family Medicine; ATTEND Family Medicine
PROC: 0B9J8ZX Drainage of Left Lower Lung Lobe, Via Natural or Artificial Opening Endoscopic, Diagnostic (ICD-10-PCS; 2019-03-31)
PROC: 0BBB8ZX Excision of Left Lower Lobe Bronchus, Via Natural or Artificial Opening Endoscopic, Diagnostic (ICD-10-PCS; principal; 2019-03-31 10:17)
DX: A41.9 Sepsis, unspecified organism (principal); J18.1 Lobar pneumonia, unspecified organism; N39.0 Urinary tract infection, site not specified; E87.1 Hypo-osmolality and hyponatremia; J90 Pleural effusion, not elsewhere classified; J44.1 Chronic obstructive pulmonary disease with (acute) exacerbation; Z68.44 Body mass index [BMI] 60.0-69.9, adult; L73.2 Hidradenitis suppurativa; D50.9 Iron deficiency anemia, unspecified; E11.65 Type 2 diabetes mellitus with hyperglycemia; K21.9 Gastro-esophageal reflux disease without esophagitis; K82.9 Disease of gallbladder, unspecified; E87.6 Hypokalemia; E83.39 Other disorders of phosphorus metabolism; E83.51 Hypocalcemia; E88.09 Other disorders of plasma-protein metabolism, not elsewhere classified; R00.0 Tachycardia, unspecified; E66.01 Morbid (severe) obesity due to excess calories; N20.0 Calculus of kidney; I27.21 Secondary pulmonary arterial hypertension

== ENCOUNTER → 2019-04-15 09:58 | Outpatient (CLI) | payer BC ==
[2019-03-27 14:18] VITALS: BMI 63.7
[~2019-04-15 09:58] MED LIST changes: +FLORAJEN3 CAPS460 MG PO; +FLUTICASONE PRO16 GM NASAL; +LEVAQUIN750 MG PO; +MUCINEX600 MG PO; +OMEPRAZOLE20 M1 PO; +SINGULAIR10 MG PO; +TESSALON PERLE100 MG PO
== END | disposition home or self-care (01) ==
LOC: D.RT 08:00
PROVIDERS: ATTEND Internal Medicine Pulmonary Disease
DX: J18.9 Pneumonia, unspecified organism (principal); A41.9 Sepsis, unspecified organism; R91.8 Other nonspecific abnormal finding of lung field

== ENCOUNTER 2019-10-25 22:10 | Emergency (ER) | payer OTHER ==
[~2019-10-25] VITALS: Ht 162.6 cm; Wt 136.4 kg
[2019-10-25 22:18] VITALS: Ht 162.6 cm; Wt 136.4 kg
[2019-10-25] MEDS ORDERED: CLOTRIM ANTIFUN15 GM TOPICAL (22:29)
[2019-10-25] MEDS ORDERED: TERBINAFINE HC250 MG PO (22:29)
[2019-10-25 22:45] VITALS: BP 176/92
== END 2019-10-25 22:45 | disposition home or self-care (01) ==
LOC: D.ER 22:10
DX: B35.4 Tinea corporis (principal); E11.9 Type 2 diabetes mellitus without complications; I10 Essential (primary) hypertension; J45.909 Unspecified asthma, uncomplicated; Z79.84 Long term (current) use of oral hypoglycemic drugs; Z72.0 Tobacco use

== ENCOUNTER → 2020-02-02 09:30 | Outpatient (CLI) | payer OTHER ==
[2019-10-25 22:18] VITALS: BMI 51.6
[~2020-02-02 09:30] MED LIST changes: +CLOTRIM ANTIFUN15 GM TOPICAL; +TERBINAFINE HC250 MG PO
== END | disposition home or self-care (01) ==
LOC: D.LAB 09:30
PROVIDERS: ATTEND Internal Medicine Pulmonary Disease
DX: Z12.31 Encounter for screening mammogram for malignant neoplasm of breast (principal)

== ENCOUNTER → 2020-02-05 10:54 | Outpatient (CLI) | payer OTHER ==
[2019-10-25 22:18] VITALS: BMI 51.6
== END | disposition home or self-care (01) ==
LOC: D.RT 10:00
PROVIDERS: ATTEND Internal Medicine Pulmonary Disease
DX: J44.9 Chronic obstructive pulmonary disease, unspecified (principal); J17 Pneumonia in diseases classified elsewhere; Z11.59 Encounter for screening for other viral diseases